=== PATIENT | female | born 1950 | race Caucasian/White ===

== ENCOUNTER 2017-03-14 13:00 | Inpatient (IN) | payer OTHER ==
[~2017-03-14] VITALS: Ht 162.6 cm; Wt 58.8 kg
[~2017-03-14 13:00] MED LIST: ALEVE220 MG PO; Ascorbic Acid,Ester- PO; Benadryl PO; CALCIUM +D & M1 EACH PO; COUMADIN,JANTO2.5 MG PO; Claritin,Alavart PO; Colace PO; Coumadin,Jantoven PO; Dulcolax PO; ELIQUIS5 MG PO; ENDOCET 5-3251 EACH PO; FISH OIL 1,2001 EAC4 PO; Feosol PO; LISINOPRIL5 MG PO; METOPROLOL SUCC25 MG PO; Oyst-Cal D, Oscal W/ PO; PROZAC20 M1 PO; PROzac PO; SENOKOT S,PE1 TABLET PO; THERAGRAN1 TABLET PO; TYLENOL EXTRA500 MG PO; Tylenol Regular Stre PO
[2017-03-14 13:55] LABS: EOSINOPHIL (%) 0 % (0-5); HEMATOCRIT 41.7 % (36.0-46.0); IMMATURE GRANULOCYTE (%) 0.3 % (0.0-0.7); INSTRUMENT ABS NEUTROPHIL CT 9.1 K/uL; LYMPHOCYTE COUNT 0.5 K/uL (1.0-2.8); MCH 29.5 PG (29.0-34.0); MCHC 33.1 G/DL (30.0-36.0); MCV 89.1 FL (83-99); MEAN PLAT.VOLUME 8.7 uM^3 (9.5-12.4); MONOCYTE (%) 3.1 % (3-12); MONOCYTE COUNT 0.3 K/uL (0-0.8); NEUTROPHIL (%) 91.4 % (45-76); NEUTROPHIL COUNT 9.1 K/uL (1.8-6.4); RBC DIS.WIDTH-CV 12.9 % (11.8-14.6); RBC DIS.WIDTH-SD 42.1 % (39-53); RED BLOOD COUNT 4.68 M/uL (3.80-5.20)
[2017-03-14 13:56] LABS: PLATELET COUNT 472 K/uL (156-360)
[2017-03-14 14:04] LABS: CHLORIDE 102 mEq/L (99-109); POTASSIUM 4.4 mEq/L (3.7-5.4); SODIUM 141 mEq/L (136-147)
[2017-03-14 14:06] LABS: GLUCOSE 133 mg/dL (70-99)
[2017-03-14 14:08] LABS: ANION GAP 11 MEQ/L (2-14); TOTAL BILIRUBIN 0.5 mg/dL (0.0-1.0)
[2017-03-14 14:10] LABS: ALKALINE PHOSPHATASE 110 IU/L (3-129); GFR ESTIMATE (CALCULATED) > 59 mL/min/
[2017-03-14 14:11] LABS: UREA NITROGEN (BUN) 16 mg/dL (9-23)
[2017-03-14 14:13] LABS: LIPASE 12 U/L (1.0-51.0)
[2017-03-14] MEDS ORDERED: ELIQUIS5 MG PO (17:02)
[2017-03-14 17:50] VITALS: BP 125/76
[2017-03-14 20:16] VITALS: BP 145/65
[2017-03-14 23:20] VITALS: BP 111/59
[2017-03-15] VITALS (7 sets, daily range): BP systolic 100–140; BP diastolic 57–76
[2017-03-15 03:30] LABS: ADD MIUA? YES; BILIRUBIN NEGATIVE; BLOOD NEGATIVE; COLOR YELLOW ((YELLOW)); GLUCOSE (STRIP) NEGATIVE; KETONES 5; LEUKOCYTES MODERATE; NITRITE NEGATIVE; PROTEIN (STRIP) NEGATIVE
[2017-03-15 03:34] LABS: BACTERIA NONE SEEN /HPF; EPITHELIAL CELLS RARE /HPF; MUCUS TRACE /LPF
[2017-03-15 03:43] LABS: SPECIFIC GRAVITY 1.071 (1.000-1.030)
[2017-03-15 06:15] LABS: INTER. NORMALIZED RATIO 1.2; PROTHROMBIN TIME 14.1 SEC (10.2-12.9)
[2017-03-15 06:31] LABS: PTT 27.7 SEC (25-37)
[2017-03-15 06:32] LABS: ANION GAP 8 MEQ/L (2-14); CHLORIDE 109 MEQ/L (99-109); GFR ESTIMATE (CALCULATED) > 59 mL/min/; GLUCOSE 109 mg/dL (70-99); POTASSIUM 4.5 MEQ/L (3.7-5.4); SAMPLE HEMOLYSIS CHECK 0; SAMPLE ICTERIC CHECK 0; SAMPLE LIPEMIA CHECK 0; SODIUM 142 MEQ/L (136-147); UREA NITROGEN (BUN) 16 mg/dL (9-23)
[2017-03-15 06:33] LABS: HEMATOCRIT 33.3 % (36.0-46.0); MCH 29.3 PG (29.0-34.0); MCHC 30.9 G/DL (30.0-36.0); MEAN PLAT.VOLUME 8.8 uM^3 (9.5-12.4); PLATELET COUNT 368 K/uL (156-360); RBC DIS.WIDTH-CV 13.2 % (11.8-14.6); RBC DIS.WIDTH-SD 45.7 % (39-53); WHITE BLOOD COUNT 6.7 K/uL (4.1-10.2)
[2017-03-15 06:39] LABS: RED BLOOD COUNT 3.52 M/uL (3.80-5.20)
[2017-03-15 06:40] LABS: MCV 94.6 FL (83-99)
[2017-03-15 22:56] LABS: INTER. NORMALIZED RATIO 1.2; PROTHROMBIN TIME 13.8 SEC (10.2-12.9)
[2017-03-15 23:01] LABS: PTT 88.6 SEC (25-37)
[2017-03-16 04:32] VITALS: BP 151/86
[2017-03-16 07:30] LABS: ANION GAP 9 MEQ/L (2-14); CHLORIDE 109 MEQ/L (99-109); POTASSIUM 3.8 MEQ/L (3.7-5.4); SAMPLE HEMOLYSIS CHECK 0; SAMPLE ICTERIC CHECK 0; SAMPLE LIPEMIA CHECK 0; SODIUM 143 MEQ/L (136-147)
[2017-03-16 07:35] LABS: GFR ESTIMATE (CALCULATED) > 59 mL/min/; GLUCOSE 103 mg/dL (70-99); UREA NITROGEN (BUN) 10 mg/dL (9-23)
[2017-03-16 08:02] VITALS: BP 144/74
[2017-03-16 11:56] VITALS: BP 123/75
[2017-03-16 16:29] VITALS: BP 135/66
[2017-03-16 20:10] VITALS: BP 134/72
[2017-03-16 23:52] VITALS: BP 140/79
[2017-03-17 04:13] VITALS: BP 127/78
[2017-03-17 06:10] LABS: HEMATOCRIT 33.4 % (36.0-46.0); MCHC 31.7 G/DL (30.0-36.0); MCV 91.5 FL (83-99); MEAN PLAT.VOLUME 9.3 uM^3 (9.5-12.4); PLATELET COUNT 379 K/uL (156-360); RBC DIS.WIDTH-CV 12.6 % (11.8-14.6); RBC DIS.WIDTH-SD 42.5 % (39-53); RED BLOOD COUNT 3.65 M/uL (3.80-5.20); WHITE BLOOD COUNT 4.7 K/uL (4.1-10.2)
[2017-03-17 06:41] LABS: ANION GAP 10 MEQ/L (2-14); CHLORIDE 110 MEQ/L (99-109); GFR ESTIMATE (CALCULATED) > 59 mL/min/; GLUCOSE 100 mg/dL (70-99); POTASSIUM 3.8 MEQ/L (3.7-5.4); SAMPLE HEMOLYSIS CHECK 0; SAMPLE ICTERIC CHECK 0; SAMPLE LIPEMIA CHECK 0; SODIUM 145 MEQ/L (136-147); UREA NITROGEN (BUN) 7 mg/dL (9-23)
[2017-03-17 08:13] VITALS: BP 129/76
[2017-03-17 11:33] VITALS: BP 128/72
[2017-03-17 15:53] VITALS: BP 129/72
[2017-03-17 20:26] VITALS: BP 148/73
[2017-03-17 23:47] VITALS: BP 124/71
[2017-03-18 04:11] VITALS: BP 124/75
[2017-03-18 07:38] VITALS: BP 138/67
[2017-03-18 15:38] VITALS: BP 157/76
[2017-03-18 23:33] VITALS: BP 127/77
[2017-03-19 08:15] VITALS: BP 128/70
[2017-03-19 11:34] LABS: C DIFF TOXIN NEGATIVE (NEGATIVE)
[2017-03-19 11:35] LABS: PROBE CHECK PASS; SPECIMEN PROCESSING CONTROL PASS
[2017-03-19 12:17] VITALS: BP 128/60
[2017-03-19 15:38] VITALS: BP 122/66
[2017-03-19 19:00] VITALS: BP 129/71
[2017-03-19 23:25] VITALS: BP 159/79
[2017-03-20 04:00] VITALS: BP 125/74
[2017-03-20 07:00] LABS: HEMATOCRIT 33.5 % (36.0-46.0); MCH 29.8 PG (29.0-34.0); MCHC 32.8 G/DL (30.0-36.0); MCV 90.8 FL (83-99); MEAN PLAT.VOLUME 9.1 uM^3 (9.5-12.4); PLATELET COUNT 379 K/uL (156-360); RBC DIS.WIDTH-SD 42.9 % (39-53); RED BLOOD COUNT 3.69 M/uL (3.80-5.20); WHITE BLOOD COUNT 5.1 K/uL (4.1-10.2)
[2017-03-20 08:00] VITALS: BP 162/80
== END 2017-03-20 13:25 | disposition home or self-care (01) | DRG 389 ==
LOC: EME 13:00 → 3EAST 16:28 → EDOF 16:28 → ENRESERV 16:29 → 3EAST 17:40
PROVIDERS: Emergency Medicine; Internal Medicine; Physician Assistant; Thoracic Surgery (Cardiothoracic Vascular Surgery)
DX: K56.609 Unspecified intestinal obstruction, unspecified as to partial versus complete obstruction (principal); N39.0 Urinary tract infection, site not specified; Z96.641 Presence of right artificial hip joint; I82.A11 Acute embolism and thrombosis of right axillary vein; I82.B11 Acute embolism and thrombosis of right subclavian vein; I82.611 Acute embolism and thrombosis of superficial veins of right upper extremity; D68.32 Hemorrhagic disorder due to extrinsic circulating anticoagulants; T45.515A Adverse effect of anticoagulants, initial encounter; K21.9 Gastro-esophageal reflux disease without esophagitis; I10 Essential (primary) hypertension; M81.0 Age-related osteoporosis without current pathological fracture; Z90.49 Acquired absence of other specified parts of digestive tract; K92.1 Melena
CPT/HCPCS: 71010; 74000; 74020; 74177; 80048; 80053; 81003; 83690; 85025; 85027; 85610; 85730; 87040; 87086; 87493; 93005; 99281; 99285; J0696; J2270; J2405; J7030; J7042; J7050; S0028

== ENCOUNTER 2017-05-31 20:23 | Inpatient (IN) | payer OTHER ==
[~2017-05-31] VITALS: Ht 162.6 cm; Wt 56.3 kg
[~2017-05-31 20:23] MED LIST changes: -LISINOPRIL5 MG PO; +ZESTRIL2.5 MG PO
[2017-05-31 20:52] LABS: HEMATOCRIT 39.3 % (36.0-46.0); HEMOGLOBIN 13.4 G/DL (11.9-15.5); MCH 29.9 PG (29.0-34.0); MCHC 34.1 G/DL (30.0-36.0); MCV 87.7 FL (83-99); PLATELET COUNT 452 K/uL (156-360); RBC DIS.WIDTH-CV 13.6 % (11.8-14.6); RBC DIS.WIDTH-SD 43.2 % (39-53); RED BLOOD COUNT 4.48 M/uL (3.80-5.20); WHITE BLOOD COUNT 10.2 K/uL (4.1-10.2)
[2017-05-31 21:02] LABS: ALBUMIN 4.5 g/dL (3.2-4.8)
[2017-05-31 21:03] LABS: CHLORIDE 95 mEq/L (99-109); POTASSIUM 4.3 mEq/L (3.7-5.4); SODIUM 136 mEq/L (136-147)
[2017-05-31 21:05] LABS: GLUCOSE 146 mg/dL (70-99); TOTAL PROTEIN 7.4 g/dL (6.4-8.3)
[2017-05-31 21:07] LABS: TOTAL BILIRUBIN 0.5 mg/dL (0.0-1.0)
[2017-05-31 21:08] LABS: ALKALINE PHOSPHATASE 79 IU/L (3-129)
[2017-05-31 21:09] LABS: CREATININE 1.4 mg/dL (0.6-1.3); GFR ESTIMATE (CALCULATED) 40 mL/min/
[2017-05-31 21:10] LABS: AST (GOT) 14 IU/L (2-34); UREA NITROGEN (BUN) 26 mg/dL (9-23)
[2017-05-31 21:11] LABS: ALT (GPT) 14 IU/L (3-49)
[2017-05-31 21:12] LABS: LIPASE 24 U/L (1.0-51.0)
[2017-05-31] MEDS ORDERED: DAILY VALUE1 EACH PO (22:12)
[2017-05-31] MEDS ORDERED: LOTEMAX3.5 GM BOTH EYES (22:13)
[2017-05-31 22:18] LABS: APPEARANCE SL.HAZY ((CLEAR)); BILIRUBIN NEGATIVE; BLOOD NEGATIVE; COLOR YELLOW ((YELLOW)); GLUCOSE (STRIP) NEGATIVE; KETONES 5; LEUKOCYTES MODERATE; NITRITE NEGATIVE; PROTEIN (STRIP) 30
[2017-05-31 22:37] LABS: SPECIFIC GRAVITY 1.067 (1.000-1.030)
[2017-05-31 22:43] LABS: BACTERIA NONE SEEN /HPF; EPITHELIAL CELLS RARE /HPF; MUCUS TRACE /LPF; UCUL ADDED? YES; WHITE BLOOD CELLS 15-20 /HPF (0-5)
[2017-06-01 09:16] LABS: CHLORIDE 106 MEQ/L (99-109); POTASSIUM 3.9 MEQ/L (3.7-5.4); SODIUM 141 MEQ/L (136-147)
[2017-06-01 09:19] VITALS: BP 146/79
[2017-06-01 09:21] LABS: GFR ESTIMATE (CALCULATED) 59 mL/min/; UREA NITROGEN (BUN) 24 mg/dL (9-23)
[2017-06-01 09:25] LABS: GLUCOSE 96 mg/dL (70-99)
[2017-06-01 11:28] VITALS: BP 116/63
[2017-06-01 16:16] VITALS: BP 115/60
[2017-06-01 23:29] VITALS: BP 98/55
[2017-06-02 03:49] VITALS: BP 113/69
[2017-06-02 07:10] LABS: CHLORIDE 108 MEQ/L (99-109); CREATININE 0.8 MG/DL (0.6-1.3); GFR ESTIMATE (CALCULATED) > 59 mL/min/; GLUCOSE 121 mg/dL (70-99); POTASSIUM 4.1 MEQ/L (3.7-5.4); SODIUM 138 MEQ/L (136-147); UREA NITROGEN (BUN) 17 mg/dL (9-23)
[2017-06-02 07:38] LABS: BASOPHIL (%) 0.2 % (0-1); EOSINOPHIL (%) 0 % (0-5); HEMATOCRIT 32.4 % (36.0-46.0); IMMATURE GRANULOCYTE (%) 0.5 % (0.0-0.7); LYMPHOCYTE (%) 9.4 % (15-42); LYMPHOCYTE COUNT 0.4 K/uL (1.0-2.8); MCH 29.5 PG (29.0-34.0); MCHC 32.4 G/DL (30.0-36.0); MONOCYTE (%) 1.7 % (3-12); MONOCYTE COUNT 0.1 K/uL (0-0.8); NEUTROPHIL (%) 88.2 % (45-76); NEUTROPHIL COUNT 3.6 K/uL (1.8-6.4); PLAT.SUFFICIENCY ADEQUATE; RBC DIS.WIDTH-CV 13.6 % (11.8-14.6); RBC DIS.WIDTH-SD 45.6 % (39-53)
[2017-06-02 07:42] LABS: HEMOGLOBIN 10.5 G/DL (11.9-15.5); PLATELET COUNT 268 K/uL (156-360); RED BLOOD COUNT 3.56 M/uL (3.80-5.20)
[2017-06-02 08:00] VITALS: BP 114/65
[2017-06-02 16:00] VITALS: BP 110/58
[2017-06-02 23:39] VITALS: BP 128/68
[2017-06-03 07:55] VITALS: BP 140/71
[2017-06-03 08:44] LABS: BASOPHIL (%) 0.1 % (0-1); EOSINOPHIL (%) 0 % (0-5); HEMOGLOBIN 10.9 G/DL (11.9-15.5); IMMATURE GRANULOCYTE (%) 0.4 % (0.0-0.7); LYMPHOCYTE (%) 2.8 % (15-42); LYMPHOCYTE COUNT 0.3 K/uL (1.0-2.8); MCH 29.4 PG (29.0-34.0); MCV 88.9 FL (83-99); MONOCYTE (%) 1.3 % (3-12); MONOCYTE COUNT 0.1 K/uL (0-0.8); NEUTROPHIL (%) 95.4 % (45-76); NEUTROPHIL COUNT 9.1 K/uL (1.8-6.4); PLATELET COUNT 329 K/uL (156-360); RBC DIS.WIDTH-CV 13.4 % (11.8-14.6); RBC DIS.WIDTH-SD 43.8 % (39-53); RED BLOOD COUNT 3.71 M/uL (3.80-5.20); WHITE BLOOD COUNT 9.6 K/uL (4.1-10.2)
[2017-06-03 09:11] LABS: CHLORIDE 107 MEQ/L (99-109); CREATININE 0.8 MG/DL (0.6-1.3); GFR ESTIMATE (CALCULATED) > 59 mL/min/; GLUCOSE 174 mg/dL (70-99); POTASSIUM 3.9 MEQ/L (3.7-5.4); SODIUM 141 MEQ/L (136-147); UREA NITROGEN (BUN) 18 mg/dL (9-23)
[2017-06-03 13:37] LABS: D-DIMER ELISA < 150.00 ng/mLDDU (<230)
== END 2017-06-03 13:21 | disposition home or self-care (01) | DRG 386 ==
LOC: EME 20:23 → RME 20:23 → EDOF 06-01 01:42 → 2EAST 06-01 01:42 → ENRESERV 06-01 01:44 → 2EAST 06-01 07:23
PROVIDERS: Internal Medicine; Internal Medicine Hematology & Oncology; Student in an Organized Health Care Education/Training Program
DX: K50.812 Crohn's disease of both small and large intestine with intestinal obstruction (principal); N17.9 Acute kidney failure, unspecified; N39.0 Urinary tract infection, site not specified; Z86.718 Personal history of other venous thrombosis and embolism; Z79.01 Long term (current) use of anticoagulants; I10 Essential (primary) hypertension; F32.9 Major depressive disorder, single episode, unspecified; M81.0 Age-related osteoporosis without current pathological fracture; I49.3 Ventricular premature depolarization; K21.9 Gastro-esophageal reflux disease without esophagitis; M54.5 Low back pain; Z86.010 Personal history of colon polyps; Z87.11 Personal history of peptic ulcer disease; Z96.641 Presence of right artificial hip joint; Z82.49 Family history of ischemic heart disease and other diseases of the circulatory system; Z82.0 Family history of epilepsy and other diseases of the nervous system
CPT/HCPCS: 74019; 74177; 80048; 80053; 81003; 82948; 83690; 85025; 85027; 85379; 86140; 87086 GA; 99281; 99285; J0696; J1650; J2405; J2930; J3010; J7030; S0028

== ENCOUNTER 2017-08-04 16:56 | Inpatient (IN) | payer OTHER ==
[~2017-08-04] VITALS: Ht 162.6 cm; Wt 63.5 kg
[~2017-08-04 16:56] MED LIST changes: +DAILY VALUE1 EACH PO; +LOTEMAX3.5 GM BOTH EYES
[2017-08-04 18:33] LABS: APPEARANCE SL.HAZY ((CLEAR)); BILIRUBIN NEGATIVE; BLOOD MODERATE; COLOR AMBER ((YELLOW)); GLUCOSE (STRIP) NEGATIVE; KETONES 20; LEUKOCYTES MODERATE; NITRITE NEGATIVE; PROTEIN (STRIP) 30; SPECIFIC GRAVITY 1.026 (1.000-1.030)
[2017-08-04 18:34] LABS: HEMATOCRIT 41.5 % (36.0-46.0); MCH 29.4 PG (29.0-34.0); MCHC 33.7 G/DL (30.0-36.0); PLATELET COUNT 432 K/uL (156-360); RBC DIS.WIDTH-CV 13.3 % (11.8-14.6); RBC DIS.WIDTH-SD 42.8 % (39-53); RED BLOOD COUNT 4.77 M/uL (3.80-5.20); WHITE BLOOD COUNT 12.3 K/uL (4.1-10.2)
[2017-08-04 18:45] LABS: ALBUMIN 4.7 g/dL (3.2-4.8); CHLORIDE 96 mEq/L (99-109); POTASSIUM 4.1 mEq/L (3.7-5.4); SODIUM 139 mEq/L (136-147)
[2017-08-04 18:48] LABS: GLUCOSE 135 mg/dL (70-99); TOTAL PROTEIN 8.1 g/dL (6.4-8.3)
[2017-08-04 18:49] LABS: BACTERIA NONE SEEN /HPF; EPITHELIAL CELLS RARE /HPF; MUCUS TRACE /LPF; UCUL ADDED? YES; WHITE BLOOD CELLS TNTC /HPF (0-5)
[2017-08-04 18:50] LABS: TOTAL BILIRUBIN 0.8 mg/dL (0.0-1.0)
[2017-08-04 18:51] LABS: ALKALINE PHOSPHATASE 102 IU/L (3-129); GFR ESTIMATE (CALCULATED) 59 mL/min/
[2017-08-04 18:52] LABS: UREA NITROGEN (BUN) 21 mg/dL (9-23)
[2017-08-04 18:53] LABS: AST (GOT) 19 IU/L (2-34)
[2017-08-04 18:54] LABS: ALT (GPT) 18 IU/L (3-49)
[2017-08-04 20:40] LABS: LIPASE 20 U/L (1.0-51.0)
[2017-08-04] MEDS ORDERED: VITAMIN B-121000 MC3 PO (21:48)
[2017-08-04] MEDS ORDERED: FOLIC ACID0.8 MG PO (21:49)
[2017-08-04] MEDS ORDERED: MIRALAX119 GM PO (21:49)
[2017-08-05 01:30] VITALS: BP 146/65
[2017-08-05 03:43] VITALS: BP 129/68
[2017-08-05 07:54] VITALS: BP 120/60
[2017-08-05 09:10] LABS: BASOPHIL (%) 0.6 % (0-1); EOSINOPHIL (%) 1.2 % (0-5); EOSINOPHIL COUNT 0.1 K/uL (0-0.3); HEMATOCRIT 33.2 % (36.0-46.0); IMMATURE GRANULOCYTE (%) 0.2 % (0.0-0.7); LYMPHOCYTE (%) 9.8 % (15-42); LYMPHOCYTE COUNT 0.5 K/uL (1.0-2.8); MCH 29.5 PG (29.0-34.0); MCHC 33.1 G/DL (30.0-36.0); MONOCYTE (%) 10.8 % (3-12); MONOCYTE COUNT 0.5 K/uL (0-0.8); NEUTROPHIL (%) 77.4 % (45-76); NEUTROPHIL COUNT 3.8 K/uL (1.8-6.4); RBC DIS.WIDTH-CV 13.6 % (11.8-14.6); RBC DIS.WIDTH-SD 44.7 % (39-53); RED BLOOD COUNT 3.73 M/uL (3.80-5.20); WHITE BLOOD COUNT 4.9 K/uL (4.1-10.2)
[2017-08-05 09:27] LABS: PLAT.SUFFICIENCY ADEQUATE
[2017-08-05 09:33] LABS: PLATELET COUNT 292 K/uL (156-360)
[2017-08-05 09:34] LABS: CHLORIDE 104 MEQ/L (99-109); GFR ESTIMATE (CALCULATED) 59 mL/min/; POTASSIUM 3.8 MEQ/L (3.7-5.4); SODIUM 142 MEQ/L (136-147); UREA NITROGEN (BUN) 18 mg/dL (9-23)
[2017-08-05 09:38] LABS: GLUCOSE 84 mg/dL (70-99)
[2017-08-05 11:48] VITALS: BP 123/60
[2017-08-05 16:11] VITALS: BP 136/71
[2017-08-06 00:11] VITALS: BP 124/74
[2017-08-06 06:43] LABS: BASOPHIL (%) 0.6 % (0-1); EOSINOPHIL (%) 1.1 % (0-5); EOSINOPHIL COUNT 0.1 K/uL (0-0.3); HEMATOCRIT 33.8 % (36.0-46.0); HEMOGLOBIN 10.7 G/DL (11.9-15.5); IMMATURE GRANULOCYTE (%) 0.2 % (0.0-0.7); LYMPHOCYTE COUNT 0.5 K/uL (1.0-2.8); MCH 28.6 PG (29.0-34.0); MCHC 31.7 G/DL (30.0-36.0); MCV 90.4 FL (83-99); MONOCYTE (%) 8.1 % (3-12); MONOCYTE COUNT 0.4 K/uL (0-0.8); NEUTROPHIL COUNT 3.7 K/uL (1.8-6.4); PLATELET COUNT 282 K/uL (156-360); RBC DIS.WIDTH-CV 13.4 % (11.8-14.6); RBC DIS.WIDTH-SD 44.5 % (39-53); RED BLOOD COUNT 3.74 M/uL (3.80-5.20); WHITE BLOOD COUNT 4.7 K/uL (4.1-10.2)
[2017-08-06 07:01] LABS: CHLORIDE 109 MEQ/L (99-109); CREATININE 0.8 MG/DL (0.6-1.3); GFR ESTIMATE (CALCULATED) > 59 mL/min/; GLUCOSE 63 mg/dL (70-99); POTASSIUM 3.6 MEQ/L (3.7-5.4); SODIUM 146 MEQ/L (136-147); UREA NITROGEN (BUN) 16 mg/dL (9-23)
[2017-08-06 08:58] VITALS: BP 138/65
[2017-08-06 16:19] VITALS: BP 138/65
[2017-08-06 23:54] VITALS: BP 135/69
[2017-08-07 07:21] LABS: HEMOGLOBIN 10.1 G/DL (11.9-15.5); MCH 28.9 PG (29.0-34.0); MCHC 32.6 G/DL (30.0-36.0); MCV 88.8 FL (83-99); PLATELET COUNT 289 K/uL (156-360); RBC DIS.WIDTH-CV 13.3 % (11.8-14.6); RBC DIS.WIDTH-SD 43.4 % (39-53); RED BLOOD COUNT 3.49 M/uL (3.80-5.20); WHITE BLOOD COUNT 4.7 K/uL (4.1-10.2)
[2017-08-07 07:44] LABS: CHLORIDE 109 MEQ/L (99-109); CREATININE 0.8 MG/DL (0.6-1.3); GFR ESTIMATE (CALCULATED) > 59 mL/min/; POTASSIUM 4.3 MEQ/L (3.7-5.4); SODIUM 142 MEQ/L (136-147); UREA NITROGEN (BUN) 12 mg/dL (9-23)
[2017-08-07 07:47] LABS: GLUCOSE 116 mg/dL (70-99)
[2017-08-07 08:54] VITALS: BP 155/70
[2017-08-07 10:08] LABS: C-REACTIVE PROTEIN 8.9 MG/L (0-10); LACTATE DEHYDROGENASE 110 IU/L (20-246)
[2017-08-07 10:09] LABS: CARCINOEMBR.ANTIGEN 0.5 NG/ML
[2017-08-07 16:20] VITALS: BP 169/88
[2017-08-07 23:09] VITALS: BP 118/66
[2017-08-08 07:11] VITALS: BP 121/80
[2017-08-08 08:19] LABS: HEMATOCRIT 33.8 % (36.0-46.0); HEMOGLOBIN 10.8 G/DL (11.9-15.5); MCH 28.8 PG (29.0-34.0); MCV 90.1 FL (83-99); PLATELET COUNT 320 K/uL (156-360); RBC DIS.WIDTH-CV 13.5 % (11.8-14.6); RED BLOOD COUNT 3.75 M/uL (3.80-5.20); WHITE BLOOD COUNT 3.7 K/uL (4.1-10.2)
[2017-08-08 08:46] LABS: CHLORIDE 107 MEQ/L (99-109); CREATININE 0.9 MG/DL (0.6-1.3); GFR ESTIMATE (CALCULATED) > 59 mL/min/; GLUCOSE 106 mg/dL (70-99); MAGNESIUM 1.7 mg/dl (1.3-2.7); POTASSIUM 4.3 MEQ/L (3.7-5.4); SODIUM 140 MEQ/L (136-147); UREA NITROGEN (BUN) 6 mg/dL (9-23)
[2017-08-08 15:33] VITALS: BP 114/67
[2017-08-08 23:44] VITALS: BP 134/61
[2017-08-09 06:13] LABS: BASOPHIL (%) 0.7 % (0-1); EOSINOPHIL (%) 3.9 % (0-5); EOSINOPHIL COUNT 0.2 K/uL (0-0.3); HEMATOCRIT 34.5 % (36.0-46.0); HEMOGLOBIN 11.1 G/DL (11.9-15.5); IMMATURE GRANULOCYTE (%) 0.2 % (0.0-0.7); LYMPHOCYTE (%) 13.6 % (15-42); LYMPHOCYTE COUNT 0.6 K/uL (1.0-2.8); MCH 29.4 PG (29.0-34.0); MCHC 32.2 G/DL (30.0-36.0); MCV 91.3 FL (83-99); MONOCYTE (%) 12.7 % (3-12); MONOCYTE COUNT 0.6 K/uL (0-0.8); NEUTROPHIL (%) 68.9 % (45-76); PLATELET COUNT 341 K/uL (156-360); RBC DIS.WIDTH-CV 13.8 % (11.8-14.6); RBC DIS.WIDTH-SD 46.4 % (39-53); RED BLOOD COUNT 3.78 M/uL (3.80-5.20); WHITE BLOOD COUNT 4.3 K/uL (4.1-10.2)
[2017-08-09 06:50] LABS: CHLORIDE 110 MEQ/L (99-109); CREATININE 0.9 MG/DL (0.6-1.3); GFR ESTIMATE (CALCULATED) > 59 mL/min/; GLUCOSE 102 mg/dL (70-99); POTASSIUM 4.8 MEQ/L (3.7-5.4); SODIUM 143 MEQ/L (136-147); UREA NITROGEN (BUN) 4 mg/dL (9-23)
[2017-08-09 08:00] VITALS: BP 129/58
[2017-08-09 14:55] VITALS: BP 169/82
[2017-08-09 20:10] VITALS: BP 142/69
[2017-08-10] VITALS (7 sets, daily range): BP systolic 120–153; BP diastolic 63–80
[2017-08-11] VITALS (8 sets, daily range): BP systolic 121–159; BP diastolic 70–77
[2017-08-11 05:44] LABS: BASOPHIL (%) 0.4 % (0-1); EOSINOPHIL (%) 1.4 % (0-5); EOSINOPHIL COUNT 0.1 K/uL (0-0.3); HEMATOCRIT 28.2 % (36.0-46.0); HEMOGLOBIN 9.3 G/DL (11.9-15.5); IMMATURE GRANULOCYTE (%) 0.4 % (0.0-0.7); LYMPHOCYTE (%) 11.5 % (15-42); LYMPHOCYTE COUNT 0.7 K/uL (1.0-2.8); MCH 29.7 PG (29.0-34.0); MCV 90.1 FL (83-99); MONOCYTE (%) 13.5 % (3-12); MONOCYTE COUNT 0.8 K/uL (0-0.8); NEUTROPHIL (%) 72.8 % (45-76); NEUTROPHIL COUNT 4.1 K/uL (1.8-6.4); PLATELET COUNT 262 K/uL (156-360); RBC DIS.WIDTH-CV 13.9 % (11.8-14.6); RBC DIS.WIDTH-SD 45.1 % (39-53); RED BLOOD COUNT 3.13 M/uL (3.80-5.20); WHITE BLOOD COUNT 5.7 K/uL (4.1-10.2)
[2017-08-11 06:15] LABS: CHLORIDE 106 MEQ/L (99-109); CREATININE 0.9 MG/DL (0.6-1.3); GFR ESTIMATE (CALCULATED) > 59 mL/min/; GLUCOSE 98 mg/dL (70-99); POTASSIUM 4.2 MEQ/L (3.7-5.4); SODIUM 141 MEQ/L (136-147); UREA NITROGEN (BUN) 7 mg/dL (9-23)
[2017-08-12 00:20] VITALS: BP 139/76
[2017-08-12 03:40] VITALS: BP 130/80
[2017-08-12 06:44] LABS: BASOPHIL (%) 0.6 % (0-1); EOSINOPHIL (%) 2.4 % (0-5); EOSINOPHIL COUNT 0.1 K/uL (0-0.3); HEMATOCRIT 28.8 % (36.0-46.0); HEMOGLOBIN 9.6 G/DL (11.9-15.5); IMMATURE GRANULOCYTE (%) 0.4 % (0.0-0.7); LYMPHOCYTE (%) 9.5 % (15-42); LYMPHOCYTE COUNT 0.5 K/uL (1.0-2.8); MCH 29.9 PG (29.0-34.0); MCHC 33.3 G/DL (30.0-36.0); MCV 89.7 FL (83-99); MONOCYTE (%) 11.5 % (3-12); MONOCYTE COUNT 0.6 K/uL (0-0.8); NEUTROPHIL (%) 75.6 % (45-76); NEUTROPHIL COUNT 3.7 K/uL (1.8-6.4); PLATELET COUNT 258 K/uL (156-360); RBC DIS.WIDTH-CV 13.8 % (11.8-14.6); RBC DIS.WIDTH-SD 44.9 % (39-53); RED BLOOD COUNT 3.21 M/uL (3.80-5.20); WHITE BLOOD COUNT 4.9 K/uL (4.1-10.2)
[2017-08-12 06:53] LABS: CHLORIDE 103 MEQ/L (99-109); CREATININE 0.8 MG/DL (0.6-1.3); GFR ESTIMATE (CALCULATED) > 59 mL/min/; GLUCOSE 81 mg/dL (70-99); POTASSIUM 3.5 MEQ/L (3.7-5.4); SODIUM 142 MEQ/L (136-147); UREA NITROGEN (BUN) 8 mg/dL (9-23)
[2017-08-12 07:38] VITALS: BP 139/76
[2017-08-12 12:21] VITALS: BP 150/72
[2017-08-12 15:37] VITALS: BP 144/75
[2017-08-12 23:48] VITALS: BP 126/73
[2017-08-13 07:30] VITALS: BP 144/90
[2017-08-13 16:20] VITALS: BP 140/88
[2017-08-14 00:07] VITALS: BP 115/60
[2017-08-14 07:49] VITALS: BP 118/90
[2017-08-14] MEDS ORDERED: TYLENOL EXTRA500 MG PO (14:20)
[2017-08-14] MEDS ORDERED: COLACE100 MG PO (14:23)
== END 2017-08-14 15:38 | disposition home or self-care (01) | DRG 330 ==
LOC: EME 16:56 → EDOF 23:54 → 2EAST 23:54 → ENRESERV 23:55 → 2EAST 08-05 01:19
PROVIDERS: Internal Medicine; Physician Assistant; Student in an Organized Health Care Education/Training Program
DX: K56.609 Unspecified intestinal obstruction, unspecified as to partial versus complete obstruction (principal); I82.629 Acute embolism and thrombosis of deep veins of unspecified upper extremity; K66.0 Peritoneal adhesions (postprocedural) (postinfection); C85.90 Non-Hodgkin lymphoma, unspecified, unspecified site; K50.90 Crohn's disease, unspecified, without complications; I10 Essential (primary) hypertension; E83.52 Hypercalcemia; E83.51 Hypocalcemia; M81.0 Age-related osteoporosis without current pathological fracture; F32.9 Major depressive disorder, single episode, unspecified; K21.9 Gastro-esophageal reflux disease without esophagitis; K64.4 Residual hemorrhoidal skin tags; K31.9 Disease of stomach and duodenum, unspecified; E87.6 Hypokalemia; Z90.49 Acquired absence of other specified parts of digestive tract; Z86.718 Personal history of other venous thrombosis and embolism; Z82.49 Family history of ischemic heart disease and other diseases of the circulatory system; Z87.11 Personal history of peptic ulcer disease; Z96.649 Presence of unspecified artificial hip joint; Z86.010 Personal history of colon polyps
CPT/HCPCS: 71045; 74177; 80048; 80053; 81003; 82378; 83605; 83615; 83690; 83735; 85025; 85027; 86140; 86301 90; 87086; 88305; 88307; 88342 TC; 94640; 99281; 99285; J0131; J0360; J0690; J0696; J1100; J1170; J1644; J1885; J2250; J2270; J2405; J2710; J2765; J3010; J7030; J7120; J7643; P9047; S0030